=== PATIENT | male | born 1995 | race Caucasian/White ===

== ENCOUNTER 2018-07-21 23:40 | Emergency (ER) | payer OTHER ==
--- NOTE | 2018-07-22 00:26 | EDPHY ---
H & P Smoking Status: Light smoker Time Seen by Provider: 07/21/18 23:53 HPI/ROS: CHIEF COMPLAINT: Left elbow pain HISTORY OF PRESENT ILLNESS: 23-year-old male here with left elbow pain since this evening. States he is uncertain as to how he hurt his elbow but thinks he might have fallen. Does admit to drinking this evening. Denies any numbness or loss of range of motion of the elbow. Denies any other injury including no head injury neck pain or abdominal pain. Denies any drug use other than alcohol this evening. REVIEW OF SYSTEMS: Constitutional: No fever, no chills. Eyes: No discharge. ENT: No sore throat. Cardiovascular: No chest pain, no palpitations. Respiratory: No cough, no shortness of breath. Gastrointestinal: No abdominal pain, no vomiting. Genitourinary: No hematuria. Musculoskeletal: No back pain. Skin: No rashes. Neurological: No headache. (Alon Flores) Physical Exam: General Appearance: Alert and no distress. Eyes: Pupils equal and round no injection. Respiratory: Chest is nontender, lungs are clear to auscultation. Cardiac: regular rate and rhythm. Gastrointestinal: Abdomen is soft and nontender, no masses, bowel sounds normal. Musculoskeletal: Neck is supple and nontender. Extremities have full range of motion and are nontender. Normal-appearing left elbow with full range of motion. Neurovascular intact distal to the left elbow. Skin: No rashes or lesions. (Alon Flores) Constitutional: Initial Vital Signs Temperature (C) 36.6 C 07/21/18 23:43 Heart Rate 86 07/21/18 23:43 Respiratory Rate 16 07/21/18 23:43 Blood Pressure 153/85 H 07/21/18 23:43 O2 Sat (%) 95 07/21/18 23:43 O2 Delivery Mode Room Air Allergies/Adverse Reactions: bacitracin [From Neosporin ([id number])] Allergy (Verified 07/21/18 23:43) neomycin [From Neosporin ([id number])] Allergy (Verified 07/21/18 23:43) polymyxin B [From Neosporin ([id number])] Allergy (Verified 07/21/18 23:43) Home Medications: Medication Instructions Recorded NK [No Known Home Meds] 07/21/18 Medical Decision Making Other Provider: PHYSICIAN DOCUMENTATION: The patient was evaluated and managed by the Physician Drilling Field Operator. My co- signature indicates that I have reviewed this chart and I agree with the findings and plan of care as documented. I am the secondary supervising physician. (Angelica Forde) Departure - Departure Disposition: Home, Routine, Self-Care Clinical Impression: Elbow sprain Condition: Good Instructions: Elbow Sprain (ED) Additional Instructions: Please use ice, ibuprofen and gentle range of motion for the next few days. Review of continued symptoms please follow up with your primary care doctor for further treatment and evaluation. Referrals: NONE *PRIMARY CARE P,. [Primary Care Provider] - As per Instructions
[2018-07-22 00:33] VITALS: BP 138/75
== END 2018-07-22 00:35 | disposition home or self-care (01) ==
DX: S53.402A Unspecified sprain of left elbow, initial encounter (principal); W19.XXXA Unspecified fall, initial encounter; Y92.9 Unspecified place or not applicable